=== PATIENT | female | born 1940 | race Caucasian/White ===

== ENCOUNTER 2020-11-26 13:50 | Emergency (ER) | payer OTHER ==
[~2020-11-26] VITALS: Ht 162.6 cm; Wt 81.7 kg
[~2020-11-26 13:50] MED LIST: ASPIRIN EC81 M1 PO; BACTRIM DS TAB1 EACH PO; CHLORTHALIDONE25 MG PO; CIPROFLOXACIN500 M1 PO; DITROPAN XL5 M1 PO; HYCET 7.5 MG-3473 ML PO; LIDODERM1 EACH TRANSDERM; LISINOPRIL10 MG PO; LOVASTATIN 20 M20 MG PO; MEDROL DOSPAK21 TA1 PO; NEXIUM40 MG PO; NORFLEX100 MG PO; PERCOCET 5-3251 EACH PO; PREDNISONE50 MG PO; PROAIR HFA8.5 GM IH; PROMETHAZINE-C120 ML PO; SIMVASTATIN20 MG PO; TRAMADOL 50 MG50 MG PO; ULTRAM 50MG TAB50 MG PO
[2020-11-26 14:42] LABS: ABSOLUTE EOSINOPHILS 0.3 thou/uL (0.0-0.7); ABSOLUTE LYMPHOCYTES 1.2 thou/uL (0.8-5.3); ABSOLUTE MONOCYTES 0.7 thou/uL (0.0-1.2); ABSOLUTE NEUTROPHILS 4.4 thou/uL (1.6-8.1); BASOPHILS 0.3 %; EOSINOPHILS 4.6 %; HEMOGLOBIN 14.1 gm/dL (12.0-15.0); MCH 30.5 pg (26.0-34.0); MCHC 33.5 g/dL (28.0-37.0); MCV 90.9 fL (80.0-100.0); MONOCYTES 10.5 %; MPV 9.2 fl. (7.2-11.1); NUCLEATED RBCS 0 /100WBC; PLATELET COUNT* 193 thou/uL (150-400); POLYS 66.6 %; RBC 4.62 mil/uL (4.20-5.00); RDW-CV 15.6 % (10.5-14.5); WBC 6.6 thou/uL (4.0-11.0)
[2020-11-26 14:53] LABS: CALCIUM 8.6 mg/dL (8.5-10.1); CREATININE 1.6 mg/dL (0.6-1.3); POTASSIUM 4.6 mmol/L (3.5-5.1)
[2020-11-26 16:33] VITALS: BP 123/46
--- NOTE | 2020-11-27 08:35 | EKG ---
[place] [address] ELECTROCARDIOGRAM REPORT Name: AUREA VALVERDE Room: [facility]#: [id number] Admission: 11/26/20 Attend Phys: Discharge: 11/26/20 Date of : 38 Date of Service: 11/26/20 1430 Report #: [id number] THIS REPORT FOR: //name// [facility] ED Test Date: 2020-11-26 Test Time: 14:30:07 Pat Name: AUREA VALVERDE Department: Room: Gender: F Specimen Collector: CD : 1940 Requested By: Ankit Bradley Order Number: [id number] MD: Stoney Fletcher Measurements Intervals [place] Rate: 59 P: -50 GA: 100 QRS: 6 QRSD: 96 T: 54 QT: 420 QTc: 416 Interpretive Statements Sinus or ectopic atrial rhythm Short GA interval Abnormal R-wave progression, early transition Baseline wander in lead(s) III No previous ECG available for comparison Electronically Signed On 11-27-2020 8:35:41 CDT by Stoney Fletcher [email or web address] <ELECTRONICALLY SIGNED> By: Stoney Fletcher MD, FACC 11/27/20 0835 1430 1430 Stoney Fletcher MD, [facility] /EPI
== END 2020-11-26 16:33 | disposition home or self-care (01) ==
LOC: M.ERS 13:50
PROVIDERS: Emergency Medicine Emergency Medical Services
DX: S70.01XA Contusion of right hip, initial encounter (principal); I10 Essential (primary) hypertension; Z87.891 Personal history of nicotine dependence; Z88.5 Allergy status to narcotic agent; Z88.2 Allergy status to sulfonamides; Z79.82 Long term (current) use of aspirin; Z79.899 Other long term (current) drug therapy; Z90.710 Acquired absence of both cervix and uterus; W18.30XA Fall on same level, unspecified, initial encounter; Y93.89 Activity, other specified; Y92.238 Other place in hospital as the place of occurrence of the external cause; Y99.9 Unspecified external cause status